=== PATIENT | female | born 1940 | race Caucasian/White ===

== ENCOUNTER 2023-05-31 14:50 | Emergency (ER) | payer MEDICARE, BC, SELFPAY ==
[2023-05-31 14:57] VITALS: BP 145/86; PULSE 64; RESP 16; TEMP 36.6; O2SAT 98; BMI 20.1
--- NOTE | 2023-05-31 14:59 | ED.EYEPROB ---
HPI - Eye Problem General Time Seen by Provider: 14:59 Date Seen: 05/31/23 Chief complaint: Eye Problems Stated complaint: L eye had debris-concerned abt infection/damage Time Seen by Provider: 05/31/23 14:51 Source: patient and RN notes reviewed Mode of arrival: ambulatory Limitations: no limitations History of Present Illness HPI Narrative: This 83-year-old female was outside raking in windy weather, had something blow into her left eye. She initially rub her IA, rinse dry. She noted some redness in the upper eye. She was worried that she might need some antibiotics. She wondered if she scratched her eye. She does not feel like there is anything in the eye itself, no retained foreign body, no irritation. May be slight upper discomfort. She has not seen anything in the field of vision, her eye is not tearing at all. She is up-to-date on her tetanus. She gets injections for macular degeneration and states it is completely controlled. chief complaint: eye redness Related Data Patient tetanus UTD: Yes Home Medications Medication Instructions Recorded Confirmed hydrochlorothiazide 25 mg tablet 25 mg PO DAILY 07/16/22 11/09/22 lisinopril 20 mg tablet 20 mg PO DAILY 07/16/22 11/09/22 Allergies Allergy/AdvReac Type Severity Reaction Status Date / Time Penicillins Allergy Mild Verified 07/16/22 19:29 Sulfa (Sulfonamide Allergy Mild Verified 07/16/22 19:29 Antibiotics) Review of Systems Narrative: As per HPI. [facility] Medical History (Updated 05/31/23 @ 15:16 by Gema Sarabia MD) Macular degeneration ?H35.30 - Unspecified macular degeneration (ICD-10) Social History Smoking Status: Never smoker Do you use any of these nicotine containing products: None Second hand tobacco smoke exposure: No How often do you have a drink containing alcohol: 4 or more times a week How many standard drinks containing alcohol do you have on a typical day: 1 or 2 How often do you have six or more drinks on one occasion: Never AUDIT-C Alcohol total score: 4 Non-prescribed substance use: denies use Exam Const: Vital Signs, click to edit/add: Vital Signs - 24 hr 05/31/23 14:57 Temperature 97.8 F Pulse Rate [Pulse Oximeter] 64 Respiratory Rate 16 Blood Pressure [Ri ght Upper Arm] 145/86 H Pulse Oximetry 98 Oxygen Delivery Me thod Room Air Patient is an 83-year-old female ambulatory into the ED of her own accord. She is alert, interactive, no apparent stress. Face is atraumatic. There is no emma orbital swelling or erythema. Pupils are equal round reactive extraocular muscles intact, conjugate gaze. Lower sclera are clear. When I lift her left upper eyebrow up, can see subconjunctival hematoma. Visualization of her cornea and eye with and without fluorescein and magnification reveal no retained foreign body, no evidence of any abrasion. She did get 2 drops of tetracaine before applying the dye. Documenting provider has reviewed patient's vital signs: yes Course Vital Signs Vital signs: Initial Vital Signs Temperature 97.8 F 05/31/23 14:57 Temperature Source Temporal Artery Scan 05/31/23 14:57 Pulse Rate 64 05/31/23 14:57 Respiratory Rate 16 05/31/23 14:57 Blood Pressure 145/86 H 05/31/23 14:57 Blood Pressure Mean 105 05/31/23 14:57 Blood Pressure Position Sitting 05/31/23 14:57 Pulse Oximetry 98 05/31/23 14:57 Oxygen Delivery Method Room Air 05/31/23 14:57 Vital Signs Temperature 97.8 F 05/31/23 14:57 Pulse Rate 64 05/31/23 14:57 Respiratory Rate 16 05/31/23 14:57 Blood Pressure 145/86 H 05/31/23 14:57 Pulse Oximetry 98 05/31/23 14:57 Oxygen Delivery Method Room Air 05/31/23 14:57 Temperature 97.8 F 05/31/23 14:57 Pulse Rate 64 05/31/23 14:57 Respiratory Rate 16 05/31/23 14:57 Blood Pressure 145/86 H 05/31/23 14:57 Pulse Oximetry 98 05/31/23 14:57 Oxygen Delivery Method Room Air 05/31/23 14:57 Discharge Plan Discharge Clinical Impression: Subconjunctival hemorrhage Qualifiers: Laterality: left Qualified Code(s): H11.32 - Conjunctival hemorrhage, left eye Patient Disposition: Home, Self-Care Condition: Stable Instructions: Subconjunctival Hemorrhage (ED) Additional Instructions: This bleeding very likely happened when you rub dry. There is currently no evidence of any abrasion or scratch of the eye. The subconjunctival hemorrhage sometimes can cause a little sense of discomfort. You certainly can use some Tylenol per bottle directions if you feel this. If the eye is becoming increasingly problematic or increasing pain, please let us know if it is before 9:00 p.m. tonight as I will still be here. After that, will likely need to be re-evaluated. Activity Level: Activity as Tolerated Prescriptions: No Action lisinopril 20 mg tablet 20 mg PO DAILY hydrochlorothiazide 25 mg tablet 25 mg PO DAILY Follow Up/Referrals: James Kovacs MD [Primary Care Provider] - Stand Alone Forms: [employer] Info Instructions
[2023-05-31 15:27] VITALS: BP 145/86; PULSE 64; RESP 16; TEMP 36.6
== END 2023-05-31 15:45 | disposition home or self-care (01) ==
LOC: ED 15:46
PROVIDERS: Emergency Provider Family Medicine; PCP Family Medicine
DX: H11.32 Conjunctival hemorrhage, left eye (principal)
CPT/HCPCS: 99282; 99283; A9270